=== PATIENT | male | born 1940 | race Caucasian/White ===

== ENCOUNTER 2020-08-21 09:16 | Emergency (ER) | payer MEDICARE, MEDICAID, SELFPAY ==
--- NOTE | 2020-08-21 09:22 | ED_ITS ---
HPI - CPR General Chief Complaint: Cardiac Arrest/CPR Stated Complaint: CARDIAC ARREST FROM [facility] Time Seen by Provider: 08/21/20 09:22 Source: EMS Mode of arrival: EMS Limitations: other (ongoing CPR) History of Present Illness HPI narrative: last seen at 7am, EMS found him in asystole between outside installer apprentice and EMS about 30 minutes CPR, no ROSC, he had rigor on EMS arrival, emesis noted, full code in place complaint: found unresponsive Onset (ago): unknown (seen at 7am) Timing confirmed by: caregiver Place: [facility]/S[facility] Bystander CPR performed: Yes AED applied by bystander/outside installer apprentice: Yes Shock advised: No Initial findings in the field: unresponsive, no respirations and no pulse ROSC in the field: No Associated injuries: No Associated symptoms: other (covered in emesis, rigor, mottled) Known history of: other Treatments prior to arrival: BMV, other airway device (kind), chest compressions and epinephrine mgs # (multiple) Related Data Allergies Allergy/AdvReac Type Severity Reaction Status Date / Time Unable to Assess Allergy Verified 08/21/20 09:28 Review of Systems Review of Systems: ROS unable to be obtained due to unresponsive and ongoing CPR [facility] Past Medical History Source: old records reviewed Medical History CVA (cerebral vascular accident) Diabetes HTN (hypertension) Vascular dementia Social History Social History (Updated 08/21/20 @ 09:24 by Magalis Hylton DO) Housing: Correction Patient Tobacco Use Status: Tobacco use Unknown Advance Directives: No Advance Directives Information Provided: No Physical Exam Vital Signs: Appearance: Severe distress, mottled, rigor noted in neck Eyes: Pupils fixed and dilated ENT: Moderate brown emesis noted in airway and supraglottic airway Neck: rigor noted, stiff CVS: absent heart sounds, no spontaneous pulse Respiratory: no respirations, delilah airway in place with emesis in mouth and tube Abdomen: distended, not rigid Skin: Pale cold, mottled Extremities: stiff and mottled cold to touch Neuro: no response to pain, no reflexes in place Course Course Course Narrative: 919 asystole on the monitor, cardiac standstill, pupils fixed and dilated, no respirations, mottled with rigor - last seen 7am, 30+ minutes asystole with rigor on EMS arrival, resuscitative efforts futile, time of 919am Procedures Procedure Narrative Procedure Narrative: 919am cardiac US - cardiac standstill Discharge Plan Discharge Clinical Impression: Cardiac arrest Patient Disposition: Date/Time: 08/21/20 09:19
[2020-08-21 09:24] VITALS: BMI 28.5
--- NOTE | 2020-08-21 09:41 | PC.NURSE ---
approx 100ml of ns administered by ems.
--- NOTE | 2020-08-21 09:45 | PC.NURSE ---
Addendum entered by Luis Orantes 08/21/20 11:45: [facility] Notified of patient , awaiting callback from [facility] at this time Original Note: [facility] Notified of patient ,
--- NOTE | 2020-08-21 11:07 | MHC.CM.ED ---
Attempted to reach patient's guardian, Basil Chauhan to notify of patient's passing. Left voicemail at [phone] requesting return telephone call.
[2020-08-21 11:42] LABS: Glucose, Whole Blood 244 mg/dL (60-115)
--- NOTE | 2020-08-21 13:04 | PC.NURSE ---
[facility] called back, asking if this nurse or anyone here had heard from patient's guardian. Still no response from patient's guardian, [facility] aware. State they will follow up again later.
--- NOTE | 2020-08-22 08:52 | MHC.CM.ED ---
Received return call from patient's guardian. He is aware patient and will work on finding a home.
== END 2020-08-21 11:46 | disposition expired ==
PROVIDERS: Emergency Provider Emergency Medicine
DX: I46.9 Cardiac arrest, cause unspecified (principal); E11.9 Type 2 diabetes mellitus without complications; I10 Essential (primary) hypertension; Z86.73 Personal history of transient ischemic attack (TIA), and cerebral infarction without residual deficits
CPT/HCPCS: 82947; 99283